=== PATIENT | male | born 1945 | race Caucasian/White ===

== ENCOUNTER 2018-05-06 14:51 | Inpatient (IN) | payer MEDICARE, MEDICAID ==
[~2018-05-06] VITALS: Ht 175.3 cm; Wt 69.2 kg
[~2018-05-06 14:51] MED LIST: CEFD300C37 PO; CYAN500L4 PO; DOXY100T PO; FOLI-17 PO; MULT1TAB60 PO; PRED20TA PO; RIVA1TAB PO; THIA100T67 PO
[2018-05-06] MEDS ORDERED: SODIUM CHLORIDE FLUSH 10ML SYR IVF ONE (16:30)
[2018-05-06] MEDS ORDERED: CEFTRIAXONE 1,000 MG in SODIUM CHLORIDE 0.9% 50 ML IVPB ONE (16:30)
[2018-05-06] MEDS ORDERED: CEFTRIAXONE PMX 1GM/50ML 50 ML ONE (16:50)
[2018-05-06 16:58] LABS: BASOPHILS # (AUTO) 0.04 x10^3/uL (0-0.1); BASOPHILS % (AUTO) 1 % (0-1); EOSINOPHILS # (AUTO) 0.01 x10^3/uL (0-0.4); EOSINOPHILS % (AUTO) 0 % (1-7); LYMPHOCYTES # (AUTO) 0.96 x10^3/uL (1-3.4); LYMPHOCYTES % (AUTO) 14 % (22-44); MD NO; MEAN CORPUSCULAR HEMOGLOBIN 33.3 pg (27.5-34.5); MEAN CORPUSCULAR HGB CONC 33.8 g/dL (33.2-36.2); MEAN CORPUSCULAR VOLUME 98.3 fL (81-97); MEAN PLATELET VOLUME 6.6 fL (7.4-10.4); MONOCYTES # (AUTO) 0.66 x10^3/uL (0.2-0.8); MONOCYTES % (AUTO) 10 % (2-9); NEUTROPHILS # (AUTO) 5.04 x10^3/uL (1.8-6.8); NEUTROPHILS % (AUTO) 75 % (42-75); PLATELET COUNT 503 x10^3/uL (130-400); RED BLOOD COUNT 3.79 x10^6/uL (4.38-5.82); RED CELL DISTRIBUTION WIDTH 14.7 % (9.4-14.8)
[2018-05-06 17:08] LABS: ALANINE AMINOTRANSFERASE 14 U/L (12-78); ALBUMIN 2.7 g/dL (3.4-5.0); ANION GAP 4 mmol/L (5-15); CALCIUM 8.9 mg/dL (8.5-10.1); CHLORIDE 102 mmol/L (98-107); CREATININE 0.69 mg/dL (0.7-1.3)
[2018-05-06 17:11] LABS: ALKALINE PHOSPHATASE 144 U/L (45-117); BILIRUBIN,TOTAL 1.1 mg/dL (0.2-1.0); TOTAL PROTEIN 7.4 g/dL (6.4-8.2)
[2018-05-06] MEDS ORDERED: BISACODYL 10 MG SUPP PR PRN (18:00)
[2018-05-06] MEDS ORDERED: AZITHROMYCIN 500 MG in SODIUM CHLORIDE 0.9% 250 ML IV SCH (18:00)
[2018-05-06] MEDS ORDERED: KETOROLAC 30 MG/1 ML IM PRN (18:00)
[2018-05-06] MEDS ORDERED: ACETAMINOPHEN 325 MG TABLET PO PRN (18:00)
[2018-05-06] MEDS ORDERED: ONDANSETRON 2MG/ML, 2ML IVPush PRN (18:00)
[2018-05-06] MEDS ORDERED: GUAIFENESIN/DM 200-20MG, 10ML UDC PO PRN (18:00)
[2018-05-06] MEDS ORDERED: POLYETHYLENE GLYCOL 17 GM PACKET PO PRN (18:00)
[2018-05-06 19:14] LABS: FOLATE LEVEL 12.5 ng/mL (3.1-17.5)
[2018-05-06] MEDS: SODIUM CHLORIDE 0.9% 1,000 ML IV SCH (20:34)
[2018-05-06] MEDS: HEPARIN 5,000 UNITS/ML, 1ML SQ SCH (20:43)
[2018-05-06 20:57] VITALS: BP 121/72
[2018-05-07 01:10] VITALS: BP 130/73
[2018-05-07 01:22] LABS: MICROSCOPIC INDICATED
[2018-05-07 01:30] LABS: CULTURE INDICATED? NO
[2018-05-07] MEDS: SODIUM CHLORIDE 0.9% 1,000 ML IV SCH ×3 (03:44→21:40)
[2018-05-07] MEDS: HEPARIN 5,000 UNITS/ML, 1ML SQ SCH (05:41)
[2018-05-07 05:46] LABS: BASOPHILS # (AUTO) 0.02 x10^3/uL (0-0.1); BASOPHILS % (AUTO) 0 % (0-1); EOSINOPHILS # (AUTO) 0.02 x10^3/uL (0-0.4); EOSINOPHILS % (AUTO) 0 % (1-7); LYMPHOCYTES # (AUTO) 0.95 x10^3/uL (1-3.4); LYMPHOCYTES % (AUTO) 15 % (22-44); MD NO; MEAN CORPUSCULAR HEMOGLOBIN 32.7 pg (27.5-34.5); MEAN CORPUSCULAR HGB CONC 33.4 g/dL (33.2-36.2); MEAN CORPUSCULAR VOLUME 97.9 fL (81-97); MEAN PLATELET VOLUME 6.9 fL (7.4-10.4); MONOCYTES % (AUTO) 11 % (2-9); NEUTROPHILS # (AUTO) 4.75 x10^3/uL (1.8-6.8); NEUTROPHILS % (AUTO) 74 % (42-75); PLATELET COUNT 394 x10^3/uL (130-400); RED BLOOD COUNT 3.51 x10^6/uL (4.38-5.82); RED CELL DISTRIBUTION WIDTH 14.7 % (9.4-14.8)
[2018-05-07 05:50] LABS: ALBUMIN 2.5 g/dL (3.4-5.0); ANION GAP 7 mmol/L (5-15); CALCIUM 8.5 mg/dL (8.5-10.1); CHLORIDE 105 mmol/L (98-107)
[2018-05-07 05:54] LABS: ALANINE AMINOTRANSFERASE 14 U/L (12-78); ALKALINE PHOSPHATASE 125 U/L (45-117); BILIRUBIN,TOTAL 0.4 mg/dL (0.2-1.0); CREATININE 0.74 mg/dL (0.7-1.3); TOTAL PROTEIN 6.6 g/dL (6.4-8.2)
[2018-05-07 07:20] VITALS: BP 113/77
[2018-05-07] MEDS: SENNA/DOCUSATE TABLET PO SCH (09:00)
[2018-05-07 16:18] VITALS: BP 131/71
[2018-05-07] MEDS ORDERED: CEFTRIAXONE 1,000 MG in SODIUM CHLORIDE 0.9% 50 ML IV SCH (16:30)
[2018-05-07] MEDS ORDERED: LIDODERM 5% PATCH TD SCH (16:30)
[2018-05-07] MEDS: RIVAROXABAN 15 MG TABLET PO SCH (16:54)
[2018-05-07] MEDS: KETOROLAC 30 MG/1 ML IVPush PRN (17:11)
[2018-05-07 20:02] VITALS: BP 122/68
[2018-05-08 02:01] VITALS: BP 143/80
[2018-05-08 05:42] LABS: ANION GAP 3 mmol/L (5-15); CALCIUM 8.3 mg/dL (8.5-10.1); CHLORIDE 105 mmol/L (98-107); CREATININE 0.69 mg/dL (0.7-1.3)
[2018-05-08 05:44] LABS: BASOPHILS # (AUTO) 0.03 x10^3/uL (0-0.1); BASOPHILS % (AUTO) 1 % (0-1); EOSINOPHILS # (AUTO) 0.04 x10^3/uL (0-0.4); EOSINOPHILS % (AUTO) 1 % (1-7); LYMPHOCYTES # (AUTO) 0.87 x10^3/uL (1-3.4); LYMPHOCYTES % (AUTO) 13 % (22-44); MD NO; MEAN CORPUSCULAR HEMOGLOBIN 32.9 pg (27.5-34.5); MEAN CORPUSCULAR HGB CONC 33.7 g/dL (33.2-36.2); MEAN CORPUSCULAR VOLUME 97.5 fL (81-97); MEAN PLATELET VOLUME 6.8 fL (7.4-10.4); MONOCYTES # (AUTO) 0.74 x10^3/uL (0.2-0.8); MONOCYTES % (AUTO) 11 % (2-9); NEUTROPHILS # (AUTO) 4.84 x10^3/uL (1.8-6.8); NEUTROPHILS % (AUTO) 74 % (42-75); PLATELET COUNT 368 x10^3/uL (130-400); RED BLOOD COUNT 3.29 x10^6/uL (4.38-5.82); RED CELL DISTRIBUTION WIDTH 14.7 % (9.4-14.8)
[2018-05-08 07:01] VITALS: BP 146/75
[2018-05-08] MEDS: RIVAROXABAN 15 MG TABLET PO SCH (07:58)
[2018-05-08] MEDS: SODIUM CHLORIDE 0.9% 1,000 ML IV SCH (07:58)
[2018-05-08] MEDS: SENNA/DOCUSATE TABLET PO SCH (08:00)
[2018-05-08 13:14] VITALS: BP 126/69
[2018-05-08] MEDS: KETOROLAC 30 MG/1 ML IVPush PRN (13:20)
[2018-05-08] MEDS ORDERED: ACET325T14 PO (15:03)
[2018-05-08] MEDS ORDERED: GUAI5SYR PO (15:03)
[2018-05-08] MEDS ORDERED: APIX5TAB PO (15:03)
[2018-05-08] MEDS ORDERED: LIDO700A20 TD (15:03)
[2018-05-08] MEDS ORDERED: APIXABAN 5 MG TABLET PO SCH (21:00)
[2018-05-29] MEDS ORDERED: RIVAROXABAN 20 MG TABLET PO SCH (09:00)
== END 2018-05-08 18:49 | disposition home or self-care (01) | DRG 175 ==
LOC: ED 16:26 → EDIP 16:27 → ED 16:37 → 4NOR 18:14
PROVIDERS: ADMIT Hospitalist; ATTEND Hospitalist
DX: I26.99 Other pulmonary embolism without acute cor pulmonale (principal); J15.9 Unspecified bacterial pneumonia; C34.90 Malignant neoplasm of unspecified part of unspecified bronchus or lung; E44.0 Moderate protein-calorie malnutrition; E87.1 Hypo-osmolality and hyponatremia; J44.0 Chronic obstructive pulmonary disease with (acute) lower respiratory infection; D53.9 Nutritional anemia, unspecified; F10.10 Alcohol abuse, uncomplicated; F17.200 Nicotine dependence, unspecified, uncomplicated; Z59.0 Homelessness; Z79.01 Long term (current) use of anticoagulants; Z91.14 Patient's other noncompliance with medication regimen; Z71.6 Tobacco abuse counseling; Z68.22 Body mass index [BMI] 22.0-22.9, adult
CPT/HCPCS: 36415; 71046; 80048; 80053; 81001; 82607; 82746; 83605; 84145; 85025; 87040; 96374; 99285; G0378; J0456; J0696; J1644; J1885; J7030; J7050

== ENCOUNTER 2018-05-14 21:41 | Inpatient (IN) | payer MEDICARE, MEDICAID ==
[~2018-05-14] VITALS: Ht 177.8 cm; Wt 70.3 kg
[~2018-05-14 21:41] MED LIST changes: +ACET325T14 PO; +APIX5TAB PO; +GUAI5SYR PO; +LIDO700A20 TD
[2018-05-14] MEDS ORDERED: ALBUTEROL/IPRATROPIUM 2.5MG/0.5MG, 3 ML ONE (23:16)
[2018-05-14] MEDS ORDERED: ALBUTEROL/IPRATROPIUM 2.5MG/0.5MG, 3 ML NPPB ONE (23:30)
[2018-05-15] MEDS ORDERED: SODIUM CHLORIDE FLUSH 10ML SYR IVF ONE (00:30)
[2018-05-15] MEDS ORDERED: SODIUM CHLORIDE 0.9% 1,000ML IVBOLUS ONE (00:30)
[2018-05-15] MEDS ORDERED: methylPREDNISolone SOD SUCC 125 MG/2 ML IVP ONE (00:30)
[2018-05-15] MEDS ORDERED: AZITHROMYCIN 500 MG in SODIUM CHLORIDE 0.9% 250 ML IVPB ONE (00:30)
[2018-05-15] MEDS ORDERED: CEFTRIAXONE 1,000 MG in SODIUM CHLORIDE 0.9% 50 ML IVPB ONE (00:30)
[2018-05-15 01:03] LABS: BASOPHILS # (AUTO) 0.01 x10^3/uL (0-0.1); BASOPHILS % (AUTO) 0 % (0-1); EOSINOPHILS # (AUTO) 0.01 x10^3/uL (0-0.4); EOSINOPHILS % (AUTO) 0 % (1-7); LYMPHOCYTES # (AUTO) 0.33 x10^3/uL (1-3.4); LYMPHOCYTES % (AUTO) 5 % (22-44); MD NO; MEAN CORPUSCULAR HEMOGLOBIN 33.1 pg (27.5-34.5); MEAN CORPUSCULAR HGB CONC 33.7 g/dL (33.2-36.2); MEAN CORPUSCULAR VOLUME 98.1 fL (81-97); MEAN PLATELET VOLUME 6.9 fL (7.4-10.4); MONOCYTES # (AUTO) 0.19 x10^3/uL (0.2-0.8); MONOCYTES % (AUTO) 3 % (2-9); NEUTROPHILS # (AUTO) 6.16 x10^3/uL (1.8-6.8); NEUTROPHILS % (AUTO) 92 % (42-75); PLATELET COUNT 424 x10^3/uL (130-400); RED BLOOD COUNT 3.47 x10^6/uL (4.38-5.82)
[2018-05-15 01:10] LABS: ANION GAP 6 mmol/L (5-15); CALCIUM 8.5 mg/dL (8.5-10.1); CHLORIDE 104 mmol/L (98-107); CREATININE 0.75 mg/dL (0.7-1.3)
[2018-05-15 01:11] LABS: ALANINE AMINOTRANSFERASE 11 U/L (12-78); ALBUMIN 2.6 g/dL (3.4-5.0)
[2018-05-15 01:12] LABS: ALKALINE PHOSPHATASE 118 U/L (45-117); BILIRUBIN,TOTAL 0.8 mg/dL (0.2-1.0)
[2018-05-15] MEDS ORDERED: methylPREDNISolone SOD SUCC 125 MG/2 ML ONE (01:20)
[2018-05-15] MEDS ORDERED: CEFTRIAXONE PMX 1GM/50ML 50 ML ONE (01:20)
[2018-05-15] MEDS ORDERED: OMNIPAQUE 350 MG/ML, 100ML BOTTLE ONE (01:50)
[2018-05-15] MEDS ORDERED: GUAIFENESIN/COD200MG-20MG/10ML LIQUID PO PRN (03:30)
[2018-05-15] MEDS ORDERED: morphine SULFATE 10 MG/ML, 1ML IVPush PRN (03:30)
[2018-05-15] MEDS ORDERED: hydrALAzine 20 MG/ML, 1ML IVPush PRN (03:30)
[2018-05-15] MEDS ORDERED: ALBUTEROL SULFATE 2.5 MG/3 ML NPPB SCH (03:30)
[2018-05-15 03:59] VITALS: BP 148/68
[2018-05-15] MEDS: POTASSIUM CHLORIDE 20 MEQ in LACTATED RINGERS 1,000 ML IV SCH ×2 (04:11→18:07)
[2018-05-15 05:58] VITALS: BP 148/68
[2018-05-15 06:36] VITALS: BP 137/71
[2018-05-15] MEDS ORDERED: LEVOFLOXACIN 750 MG TABLET PO SCH (09:00)
[2018-05-15] MEDS: APIXABAN 5 MG TABLET PO SCH ×2 (09:21→22:06)
[2018-05-15] MEDS: PIPERACILLIN/TAZO/PMX 3.375GM 50 ML IV SCH ×3 (09:25→22:06)
[2018-05-15 12:49] VITALS: BP 125/75
[2018-05-15] MEDS ORDERED: ALBUTEROL SULFATE 2.5 MG/3 ML NPPB PRN (14:30)
[2018-05-15 21:23] VITALS: BP 130/78
[2018-05-16 03:55] VITALS: BP 137/85
[2018-05-16] MEDS: PIPERACILLIN/TAZO/PMX 3.375GM 50 ML IV SCH ×4 (04:15→22:08)
[2018-05-16 06:05] LABS: BASOPHILS % (AUTO) 0 % (0-1); EOSINOPHILS # (AUTO) 0.02 x10^3/uL (0-0.4); EOSINOPHILS % (AUTO) 0 % (1-7); LYMPHOCYTES # (AUTO) 0.46 x10^3/uL (1-3.4); LYMPHOCYTES % (AUTO) 7 % (22-44); MD NO; MEAN CORPUSCULAR HEMOGLOBIN 33.2 pg (27.5-34.5); MEAN CORPUSCULAR HGB CONC 33.9 g/dL (33.2-36.2); MEAN PLATELET VOLUME 6.9 fL (7.4-10.4); MONOCYTES # (AUTO) 0.76 x10^3/uL (0.2-0.8); MONOCYTES % (AUTO) 12 % (2-9); NEUTROPHILS # (AUTO) 5.38 x10^3/uL (1.8-6.8); NEUTROPHILS % (AUTO) 81 % (42-75); PLATELET COUNT 383 x10^3/uL (130-400); RED BLOOD COUNT 3.42 x10^6/uL (4.38-5.82); RED CELL DISTRIBUTION WIDTH 14.9 % (9.4-14.8)
[2018-05-16 06:19] LABS: ANION GAP 10 mmol/L (5-15); CALCIUM 8.2 mg/dL (8.5-10.1); CHLORIDE 102 mmol/L (98-107); CREATININE 0.72 mg/dL (0.7-1.3)
[2018-05-16] MEDS: APIXABAN 5 MG TABLET PO SCH ×2 (09:41→22:08)
[2018-05-16 13:50] VITALS: BP 127/81
[2018-05-16 19:50] VITALS: BP 114/85
[2018-05-16] MEDS: ACETAMINOPHEN 325 MG TABLET PO PRN (22:08)
[2018-05-16] MEDS: OXYcodone/APAP 5/325MG TABLET PO PRN (22:19)
[2018-05-17 01:52] VITALS: BP 120/84
[2018-05-17] MEDS: PIPERACILLIN/TAZO/PMX 3.375GM 50 ML IV SCH ×4 (04:15→22:09)
[2018-05-17 06:50] VITALS: BP 105/63
[2018-05-17] MEDS: APIXABAN 5 MG TABLET PO SCH ×2 (07:32→19:38)
[2018-05-17 12:12] VITALS: BP 137/83
[2018-05-17 18:58] VITALS: BP 126/75
[2018-05-17] MEDS: OXYcodone/APAP 5/325MG TABLET PO PRN (19:38)
[2018-05-18 01:39] VITALS: BP 127/71
[2018-05-18] MEDS: PIPERACILLIN/TAZO/PMX 3.375GM 50 ML IV SCH ×4 (04:21→21:54)
[2018-05-18 07:00] VITALS: BP 130/65
[2018-05-18] MEDS: APIXABAN 5 MG TABLET PO SCH ×2 (09:07→20:09)
[2018-05-18 13:58] LABS: CLOSTRIDIUM DIFFICILE ANTIGEN NEGATIVE; CLOSTRIDIUM DIFFICILE TOXIN NEGATIVE (Negative)
[2018-05-18 14:00] VITALS: BP 125/76
[2018-05-18] MEDS: OXYcodone/APAP 5/325MG TABLET PO PRN (18:49)
[2018-05-18 20:19] VITALS: BP 133/76
[2018-05-18] MEDS: ACETAMINOPHEN 325 MG TABLET PO PRN (21:55)
[2018-05-19 03:55] VITALS: BP 137/56
[2018-05-19] MEDS: PIPERACILLIN/TAZO/PMX 3.375GM 50 ML IV SCH ×4 (03:56→22:03)
[2018-05-19 07:25] VITALS: BP 142/78
[2018-05-19] MEDS: APIXABAN 5 MG TABLET PO SCH ×2 (09:28→22:03)
[2018-05-19] MEDS: GUAIFENESIN ER 600 MG TABLET PO SCH ×2 (09:30→22:03)
[2018-05-19 12:35] VITALS: BP 132/81
[2018-05-19] MEDS: OXYcodone/APAP 5/325MG TABLET PO PRN ×2 (18:21→22:03)
[2018-05-19 20:25] VITALS: BP 117/63
[2018-05-19] MEDS ORDERED: OMNIPAQUE 350 MG/ML, 100ML BOTTLE ONE (22:20)
[2018-05-20 02:10] VITALS: BP 124/74
[2018-05-20] MEDS: PIPERACILLIN/TAZO/PMX 3.375GM 50 ML IV SCH ×4 (04:17→23:37)
[2018-05-20] MEDS: OXYcodone/APAP 5/325MG TABLET PO PRN ×2 (08:32→13:10)
[2018-05-20] MEDS: GUAIFENESIN ER 600 MG TABLET PO SCH ×2 (08:32→20:41)
[2018-05-20] MEDS: APIXABAN 5 MG TABLET PO SCH ×2 (08:32→20:41)
[2018-05-20 21:41] VITALS: BP 108/70
[2018-05-21 01:50] VITALS: BP 135/72
[2018-05-21] MEDS: PIPERACILLIN/TAZO/PMX 3.375GM 50 ML IV SCH (04:35)
[2018-05-21] MEDS: OXYcodone/APAP 5/325MG TABLET PO PRN ×2 (04:44→09:46)
[2018-05-21 07:46] VITALS: BP 145/80
[2018-05-21] MEDS ORDERED: ACET325T14 PO (08:49)
[2018-05-21] MEDS ORDERED: APIX5TAB PO (08:49)
[2018-05-21] MEDS ORDERED: AMOX1TAB64 PO (08:49)
[2018-05-21] MEDS ORDERED: GUAI600T31 PO (08:49)
[2018-05-21] MEDS: GUAIFENESIN ER 600 MG TABLET PO SCH ×2 (09:30→09:38)
[2018-05-21] MEDS: APIXABAN 5 MG TABLET PO SCH (09:39)
[2018-05-21] MEDS ORDERED: PIPERACILLIN/TAZO 3.375 GM in SODIUM CHLORIDE 0.9% 50 ML IV SCH (10:00)
== END 2018-05-21 12:45 | disposition home or self-care (01) | DRG 180 ==
LOC: ED 23:59 → INTOOBSV 05-15 02:51 → 4NOR 05-15 02:51 → OBSVTOIN 05-15 02:51 → 3NW 05-19 18:14 → DCLOUNGE 05-21 12:26
PROVIDERS: ADMIT Family Medicine; ATTEND Family Medicine
DX: C34.90 Malignant neoplasm of unspecified part of unspecified bronchus or lung (principal); J15.9 Unspecified bacterial pneumonia; J44.0 Chronic obstructive pulmonary disease with (acute) lower respiratory infection; C79.72 Secondary malignant neoplasm of left adrenal gland; C79.71 Secondary malignant neoplasm of right adrenal gland; F17.210 Nicotine dependence, cigarettes, uncomplicated; F10.10 Alcohol abuse, uncomplicated; Z91.19 Patient's noncompliance with other medical treatment and regimen; Z86.711 Personal history of pulmonary embolism; Z91.14 Patient's other noncompliance with medication regimen; Z79.01 Long term (current) use of anticoagulants; Z59.0 Homelessness; Z85.118 Personal history of other malignant neoplasm of bronchus and lung
CPT/HCPCS: 36415; 71046; 71275; 74174; 80048; 80053; 85025; 87040; 87324; 93005; 94640; 96365; 96366; 96368; 96375; 99285; G0378; J0456; J0696; J2543; J3480; J7620; Q9967; J2930; J7030; J7050; J7120

== ENCOUNTER 2018-05-31 03:24 | Emergency (ER) | payer MEDICARE, MEDICAID ==
[~2018-05-31] VITALS: Ht 172.7 cm; Wt 65.0 kg
[~2018-05-31 03:24] MED LIST changes: +AMOX1TAB64 PO; +GUAI600T31 PO
[2018-05-31 03:27] VITALS: BP 118/62
[2018-05-31] MEDS ORDERED: DEXAMETHASONE 4 MG TABLET ONE (04:19)
[2018-05-31] MEDS ORDERED: ALBUTEROL/IPRATROPIUM 2.5MG/0.5MG, 3 ML ONE (04:20)
[2018-05-31] MEDS ORDERED: ALBUTEROL/IPRATROPIUM 2.5MG/0.5MG, 3 ML NPPB ONE (04:30)
[2018-05-31] MEDS ORDERED: DEXAMETHASONE 4 MG TABLET PO ONE (04:30)
[2018-05-31] MEDS ORDERED: ALBUTEROL SULFATE 2.5 MG/3 ML NPPB ONE (05:00)
[2018-05-31] MEDS ORDERED: ALBUTEROL SULFATE 2.5 MG/3 ML ONE (05:06)
== END 2018-05-31 05:44 | disposition home or self-care (01) ==
LOC: ED 04:39
DX: J44.9 Chronic obstructive pulmonary disease, unspecified (principal); J18.1 Lobar pneumonia, unspecified organism; Z85.118 Personal history of other malignant neoplasm of bronchus and lung; Z72.9 Problem related to lifestyle, unspecified; Z91.14 Patient's other noncompliance with medication regimen
CPT/HCPCS: 93005; 94640; 99284; J7613; J7620